=== PATIENT | female | born 1975 | race Caucasian/White ===

== ENCOUNTER 2024-07-09 10:38 | Day surgery (SDC) | payer OTHER ==
[~2024-07-09] VITALS: Ht 160 cm; Wt 78.9 kg
[~2024-07-09 10:38] MED LIST: INDERAL10 M1 PO; KLONOPIN1 MG PO; OMEPRAZOLE DR40 MG PO; SERTRALINE25 MG PO; TRAZODONE50 MG PO
[2024-07-09] MEDS ORDERED: LACTATED RINGER'S 1,000 ML IV ONE ×2 (10:40→11:57)
[2024-07-09] MEDS ORDERED: FAMOTIDINE 10MG/ML 2ML SDV IV ONE (10:40)
[2024-07-09 12:39] VITALS: BP 101/70
[2024-07-09] MEDS ORDERED: LIDOCAINE HCL 2% 2ML SDV IV ONE (16:35)
[2024-07-09] MEDS ORDERED: PROPOFOL 200 MG/20 ML VIAL IV ONE (16:35)
== END 2024-07-09 12:56 | disposition home or self-care (01) ==
LOC: ENDO 10:38 → ORM 14:05 → ENDO 14:55
PROVIDERS: ATTEND Internal Medicine Gastroenterology
DX: Z12.11 Encounter for screening for malignant neoplasm of colon (principal); K57.30 Diverticulosis of large intestine without perforation or abscess without bleeding; K64.8 Other hemorrhoids; K29.50 Unspecified chronic gastritis without bleeding; K21.9 Gastro-esophageal reflux disease without esophagitis; Z80.0 Family history of malignant neoplasm of digestive organs